=== PATIENT | male | born 1975 | race Caucasian/White ===

== ENCOUNTER 2023-10-03 12:02 | Outpatient (RCR) | payer BC, SELFPAY | END 2023-10-03 23:59 | disposition home or self-care (01) | LOC: RPT 12:02 | PROVIDERS: ATTENDING PHYSICIAN Psychiatry & Neurology Neurology; FAMILY PHYSICIAN Physician Assistant | DX: M53.3 Sacrococcygeal disorders, not elsewhere classified (principal); M62.89 Other specified disorders of muscle; R10.2 Pelvic and perineal pain; Z73.6 Limitation of activities due to disability; R27.8 Other lack of coordination; M62.81 Muscle weakness (generalized); M62.838 Other muscle spasm | CPT/HCPCS: 97140; 97530 ==

== ENCOUNTER 2023-12-08 06:29 | Outpatient (RCR) | payer BC, SELFPAY | END 2023-12-08 23:59 | disposition home or self-care (01) | LOC: RPT 06:29 | PROVIDERS: ATTENDING PHYSICIAN Psychiatry & Neurology Neurology; FAMILY PHYSICIAN Physician Assistant | DX: M53.3 Sacrococcygeal disorders, not elsewhere classified (principal); M62.89 Other specified disorders of muscle; R10.2 Pelvic and perineal pain; R27.8 Other lack of coordination; M62.81 Muscle weakness (generalized); M62.838 Other muscle spasm; Z73.6 Limitation of activities due to disability | CPT/HCPCS: 97530 ==

== ENCOUNTER 2023-12-28 21:48 | Emergency (ER) | payer BC, SELFPAY ==
[2023-12-28 21:51] VITALS: BP 148/94
--- NOTE | 2023-12-28 22:27 | ED.GENMED ---
History of Present Illness
General
Chief Complaint: Skin Problem
Source: patient
Exam Limitations: none
Time Seen by Provider: 12/28/23 22:23
Travel History
Have you had any contact with someone who has COVID-19?: No
Do you have any symptoms of coronavirus? Fever > 100 degrees, chills, cough, shortness of breath, sore throat, loss of taste or smell, muscle aches, or headache?: No
History of Present Illness
History of Present Illness:
See MDM
Past History
Past History
ED Past Medical History: None
ED Past Surgical History: None
Social History
Tobacco: Non-smoker
Alcohol: None
Phy Exam
Physical Exam
Physical Exam:
See MDM
Course
Orders/Labs/Results
Orders:
Orders
12/28/23 22:27
Doxycycline [Vibramycin] 100 mg PO NOW STA
Vital Signs
Initial and Last Documented VS:
Initial Vital Signs
Temp Pulse Resp BP Pulse Ox
98.3 F 63 20 148/94 97
12/28/23 21:51 12/28/23 21:51 12/28/23 21:51 12/28/23 21:51 12/28/23 21:51
Last Documented Vital Signs
Temp Pulse Resp BP Pulse Ox
98.3 F 63 20 148/94 97
12/28/23 21:51 12/28/23 21:51 12/28/23 21:51 12/28/23 21:51 12/28/23 21:51
Procedures
Incision/Drainage/Joint Aspiration
Right Distal Ulnar First Finger:
Anethesia: 1% Lidocaine
Preparation: cleaned with alcohol wipe
Type of procedure: incise
Nature of site: hematoma
Description of abscess: less than 3cm
Loculations broken up: No
How much fluid was obtained?: scant amount
Fluid description: bloody
Treatment: left open for drainage
MDM/Problems Addressed
Differential Diagnosis Includes:
HPI and MDM Narrative:
48-year-old male presenting with right thumb swelling and pain. 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 He is unsure if he picked up an infection during a surgery. He is [id number]. He states his left thumb is throbbing
and red. He did start Augmentin but was concerned that there is now red streaking going up his thumb. He denies numbness or tingling
Exam is consistent with paronychia. There is no evidence of felon. Patient gave verbal consent for I&D
Physical exam
General: Well appearing and non-toxic
HEENT: protecting airway
Neck: appears supple
CV: No evidence of cyanosis
Resp: No accessory muscle use
Abd: Non-distended
Extremities: Paronychia to left thumb
Neuro: alert
Psych: Normal affect
Skin: Intact
Problems Addressed including Acute and Chronic Conditions affecting care:
1. Paronychia
Acuity: acute
Prognosis: stable
Details: Will I&D with #11 blade. Will switch from Augmentin to doxycycline
Updates
Patient tolerated I&D. The area was decompressed and was concerning for infected hematoma. No significant amount of purulent discharge was removed. The discharge was bloody
Differential Diagnosis (but not limited to): Felon, cellulitis, paronychia
Testing considered:
Drug therapy (if applicable): OTC meds, please see d/c instruction regarding Rx drugs
Amount and/or Complexity of Data Reviewed
Clinical info obtained from: Patient
External data reviewed: N/A
Labs I independently reviewed (but not limited to): N/A
Radiology: N/A
Pulse Ox: not hypoxic
EKG independently reviewed: N/A
Car Washer: N/A
Critical Care: N/A
Risk of Complication:
Social Determinants of health: Good social support
Discussed with other providers: N/A
Escalation of Care includes Admit/Obs: After being observed in the Emergency Department, pt stable for discharge.
Occasional wrong word or 'sound a like' substitutions may have occurred due to the inherent limitations of voice recognition software. Read the chart carefully and recognize, using context, where substitutions have occurred.
*Critical Care Note
Total Time (30-74mins, 75-104mins- exclusive of procedures): Not Applicable
ED Attending Note
-
Portions of this chart may have been created with voice recognition software.� Occasional wrong word or��sound alike� substitutions may have occurred due to the inherent limitations of voice recognition software.
Discharge Plan
Departure
Patient Disposition: Home (Routine Discharge)
Date of Disposition: 12/28/23
Time of Disposition: 22:39
Patient with high blood pressure during this ER visit?: Yes
Discharge Problem:
Paronychia
Instructions: Paronychia ED, BLOOD PRESSURE
Prescriptions:
New
doxycycline hyclate 100 mg capsule
100 mg PO BID Qty: 14 0RF
No Action
albuterol sulfate 1 PUFF HFA aerosol inhaler
2 puff inhalation R Q4HPRN PRN (Reason: wheeze)
tramadol 50 MG tablet
50 mg PO Q6HPRN PRN (Reason: severe pain/breakthrough pain) Qty: 10 0RF
Activity Restrictions/Additional Instructions:
Please continue to soak the area a few times a day. Return for worsening symptoms.
Interventions
Interventions:
*Risk Screen - Suicide Last Done: 12/28/23 21:51
*General Assessment Last Done: 12/28/23 21:51
[2023-12-28] MEDS: VIBRAMYCIN 100 MG PO (22:33)
== END 2023-12-28 23:00 | disposition home or self-care (01) ==
LOC: EMR 21:48
PROVIDERS: EMERGENCY PHYSICIAN Student in an Organized Health Care Education/Training Program; FAMILY PHYSICIAN Physician Assistant
DX: L03.012 Cellulitis of left finger (principal); R03.0 Elevated blood-pressure reading, without diagnosis of hypertension
CPT/HCPCS: 99283; 10060

== ENCOUNTER → 2025-08-21 07:47 | Outpatient (REF) | payer BC, SELFPAY ==
[2025-08-21 09:51] LABS: Hematocrit 43.0 % (39.0-52.0); Hemoglobin 14.9 g/dL (13.0-18.0); Mean Corp Hgb Conc. 34.7 g/dL (33.0-37.0); Mean Corpuscular Volume 92.5 fL (80.0-94.0); Nucleated Red Blood Cells % 0 % (-); Platelet Count 200 10^3/uL (130-400); Red Cell Dist. Width 12.6 % (11.5-14.5)
[2025-08-21 11:36] LABS: PSA, Total - Screen 0.65 ng/ml (0.0-4.0); TSH 0.59 uIU/ml (0.47-4.68)
[2025-08-21 11:50] LABS: ALT (SGPT) 27 U/L (0-50); AST (SGOT) 22 U/L (17-59); Albumin 4.7 g/dl (3.5-5.0); Alkaline Phosphatase 57 U/L (38-126); Blood Urea Nitrogen 17 mg/dl (9-20); Calcium 9.5 mg/dl (8.4-10.2); Carbon Dioxide 29 mmol/L (22-30); Chloride 104 mmol/L (98-107); Glucose 108 mg/dl (70-99); HDL Cholesterol 59 mg/dl; LDL Cholesterol, Calculated 122 mg/dl; Potassium 4.5 mmol/L (3.5-5.1); Sodium 140 mmol/L (135-145); Total Protein 7.1 g/dl (6.3-8.2); Very Low Density Lipoprotein 10 mg/dl (0-30); eGFR > 60.00
[2025-08-23 10:25] LABS: Glycohemoglobin (HgbA1c) 5.6 % (4.0-5.9)
== END ==
LOC: REG 07:47
PROVIDERS: ATTENDING PHYSICIAN Internal Medicine
DX: Z00.00 Encounter for general adult medical examination without abnormal findings (principal); R73.01 Impaired fasting glucose; E04.1 Nontoxic single thyroid nodule; E78.5 Hyperlipidemia, unspecified; Z12.5 Encounter for screening for malignant neoplasm of prostate
CPT/HCPCS: 36415; 80053; 80061; 83036; 84443; 85025; G0103

== ENCOUNTER → 2025-10-14 08:58 | Outpatient (REF) | payer BC, SELFPAY ==
[2025-10-14 19:33] LABS: Hepatitis C Antibody Negative (Negative)
== END ==
LOC: REG 08:58
PROVIDERS: ATTENDING PHYSICIAN Surgery Vascular Surgery; FAMILY PHYSICIAN Internal Medicine
DX: R50.9 Fever, unspecified (principal)
CPT/HCPCS: 36415; 86803; 87389